=== PATIENT | female | born 1990 | race Caucasian/White ===

== ENCOUNTER 2020-10-25 01:16 | Inpatient (IN) | payer OTHER ==
[2020-10-25] MEDS ORDERED: FENTANYL PF 100 MCG/2ML IVPush PRN (01:30)
[2020-10-25] MEDS ORDERED: SODIUM CITRATE/CITRIC ACID 30 ML UDC PO PRN (01:30)
[2020-10-25] MEDS ORDERED: MISOPROSTOL 200 MCG TABLET ONE (01:30)
[2020-10-25] MEDS ORDERED: FENTANYL PF 100 MCG/2ML IV PRN (01:30)
[2020-10-25] MEDS ORDERED: METOCLOPRAMIDE 5 MG/ML, 2ML IVPush PRN (01:30)
[2020-10-25] MEDS ORDERED: LACTATED RINGERS 1,000 ML IVBOLUS PRN (01:30)
[2020-10-25] MEDS ORDERED: LIDOCAINE 1%, 20ML ONE ×2 (01:30→03:41)
[2020-10-25] MEDS ORDERED: LACTATED RINGERS 1,000 ML IV SCH (01:30)
[2020-10-25] MEDS ORDERED: OXYTOCIN 30U/ 0.9% NaCL 500ML 500 ML IV ONE (01:30)
[2020-10-25] MEDS ORDERED: ONDANSETRON 2MG/ML, 2ML IVPush PRN (01:30)
[2020-10-25] MEDS ORDERED: TERBUTALINE 1 MG/ML, 1ML SQ PRN (01:30)
[2020-10-25] MEDS ORDERED: FENTANYL/BUPIV./NS/PF 250 ML EPIDCONT SCH (01:30)
[2020-10-25] MEDS ORDERED: TERBUTALINE 1 MG/ML, 1ML IVPush PRN (01:30)
[2020-10-25] MEDS ORDERED: D5%-LACTATED RINGERS 1,000 ML IV SCH (01:30)
[2020-10-25] MEDS ORDERED: OXYTOCIN 30U/ 0.9% NaCL 500ML 500 ML ONE (01:31)
[2020-10-25] MEDS ORDERED: NEWBORN KIT ONE (01:41)
[2020-10-25 01:58] LABS: MEAN CORPUSCULAR HGB CONC 33.6 g/dL (32.4-35.8); MEAN PLATELET VOLUME 9.2 fL (7.4-10.4); PLATELET COUNT 224 x10^3/uL (130-400); RED BLOOD COUNT 4.33 x10^6/uL (3.82-5.3); RED CELL DISTRIBUTION WIDTH 14.5 % (9.6-15.2)
[2020-10-25 03:24] LABS: MD YES
[2020-10-25 03:29] LABS: BAND#(MANUAL) 0.71 x10^3/uL; BANDS%(MANUAL) 4 % (0-7); LYMPH#(MANUAL) 4.09 x10^3/uL (1-3.4); LYMPHS% (MANUAL) 23 % (22-44); MONOS#(MANUAL) 1.25 x10^3/uL (0.3-2.7); MONOS% (MANUAL) 7 % (2-9); MYELOCYTES# (MANUAL) 0.18 x10^3/uL (0-0); MYELOCYTES% (MANUAL) 1 % (0-0); SEG#(MANUAL) 11.57 x10^3/uL (1.8-6.8); SEGS% (MANUAL) 65 % (42-75)
[2020-10-25 03:31] LABS: <PLATELET ESTIMATE> ADEQUATE; <PLT MORPHOLOGY> NORMAL PLT MORPH; <RBC MORPHOLOGY> NORMAL
[2020-10-25] MEDS ORDERED: OXYTOCIN 10 UNITS/ML, 1ML ONE (03:34)
[2020-10-25] MEDS ORDERED: CALCIUM CARBONATE 500 MG TAB.CHEW PO PRN (04:30)
[2020-10-25] MEDS ORDERED: OXYcodone/APAP 5/325MG TABLET PO PRN ×2 (04:30)
[2020-10-25] MEDS ORDERED: MAGNESIUM HYDROXIDE 8%, 30ML UDC PO PRN (04:30)
[2020-10-25] MEDS ORDERED: MISOPROSTOL 200 MCG TABLET PR PRN (04:30)
[2020-10-25] MEDS ORDERED: OXYTOCIN 30U/ 0.9% NaCL 500ML 500 ML IV SCH (04:30)
[2020-10-25] MEDS ORDERED: ACETAMINOPHEN 325 MG TABLET PO PRN ×2 (04:30)
[2020-10-25] MEDS ORDERED: SIMETHICONE 80 MG CHEW TAB PO PRN (04:30)
[2020-10-25] MEDS ORDERED: ONDANSETRON 2MG/ML, 2ML IV PRN (04:30)
[2020-10-25] MEDS ORDERED: OXYTOCIN 10 UNITS/ML, 1ML IM PRN (04:30)
[2020-10-25] MEDS ORDERED: RHOGAM FROM BLOOD BANK 1 NOTE EA IM/IV ONE (04:30)
[2020-10-25] MEDS ORDERED: DIPH,PERTUSS(ACELL),TET VAC/PF NC IM-VACC PRN (04:30)
[2020-10-25 06:00] VITALS: BP 124/83
[2020-10-25 08:00] VITALS: BP 105/65
[2020-10-25] MEDS: DOCUSATE 100 MG CAPSULE PO PRN (09:46)
[2020-10-25] MEDS: IBUPROFEN 600 MG TABLET PO PRN ×2 (09:46→16:37)
[2020-10-25] MEDS: PRENATAL VIT/IRON/FA 1 EACH TABLET PO SCH (09:46)
[2020-10-25 12:06] LABS: BASOPHILS % (AUTO) 1 % (0-1); EOSINOPHILS % (AUTO) 0 % (1-7); LYMPHOCYTES % (AUTO) 13 % (22-44); MEAN CORPUSCULAR HEMOGLOBIN 30.2 pg (27.0-34.8); MEAN CORPUSCULAR HGB CONC 33.9 g/dL (32.4-35.8); MEAN PLATELET VOLUME 9.5 fL (7.4-10.4); MONOCYTES % (AUTO) 7 % (2-9); NEUTROPHILS % (AUTO) 80 % (42-75); PLATELET COUNT 228 x10^3/uL (130-400); RED BLOOD COUNT 4.21 x10^6/uL (3.82-5.3); RED CELL DISTRIBUTION WIDTH 13.8 % (9.6-15.2)
[2020-10-25 12:30] LABS: MD SCAN
[2020-10-25 13:58] VITALS: BP 103/71
[2020-10-25 16:31] VITALS: BP 106/68
[2020-10-25 20:00] VITALS: BP 109/71
[2020-10-25 21:13] LABS: BASOPHILS % (AUTO) 1 % (0-1); EOSINOPHILS % (AUTO) 0 % (1-7); LYMPHOCYTES % (AUTO) 19 % (22-44); MEAN CORPUSCULAR HGB CONC 33.4 g/dL (32.4-35.8); MEAN PLATELET VOLUME 9.4 fL (7.4-10.4); MONOCYTES % (AUTO) 8 % (2-9); NEUTROPHILS % (AUTO) 72 % (42-75); PLATELET COUNT 214 x10^3/uL (130-400); RED BLOOD COUNT 3.97 x10^6/uL (3.82-5.3); RED CELL DISTRIBUTION WIDTH 14.4 % (9.6-15.2)
[2020-10-25 21:18] LABS: ALANINE AMINOTRANSFERASE 23 U/L (12-78); ALBUMIN 2.3 g/dL (3.4-5.0); ANION GAP 7 mmol/L (5-15); CALCIUM 8.7 mg/dL (8.5-10.1); CHLORIDE 110 mmol/L (98-107); CREATININE 0.71 mg/dL (0.55-1.02)
[2020-10-25 21:21] LABS: ALKALINE PHOSPHATASE 101 U/L (45-117); BILIRUBIN,TOTAL 0.3 mg/dL (0.2-1.0)
[2020-10-25 21:35] LABS: MD SCAN
[2020-10-26] VITALS: BP 124/75
[2020-10-26] MEDS: IBUPROFEN 600 MG TABLET PO PRN ×2 (00:36→08:00)
[2020-10-26] MEDS ORDERED: IBUP-1222 PO (07:18)
[2020-10-26 07:30] VITALS: BP 115/76
[2020-10-26] MEDS: DOCUSATE 100 MG CAPSULE PO PRN (08:00)
[2020-10-26] MEDS: PRENATAL VIT/IRON/FA 1 EACH TABLET PO SCH (08:00)
== END 2020-10-26 14:25 | disposition home or self-care (01) | DRG 807 ==
LOC: LDOP 01:16 → EDIP 01:33 → LDIP 01:37 → 2NW 05:29
PROVIDERS: ADMIT Obstetrics & Gynecology; ATTEND Obstetrics & Gynecology
PROC: 0KQM0ZZ Repair Perineum Muscle, Open Approach (ICD-10-PCS; principal; 2020-10-25)
PROC: 10E0XZZ Delivery of Products of Conception, External Approach (ICD-10-PCS; 2020-10-25)
DX: O62.9 Abnormality of forces of labor, unspecified (principal); Z37.0 Single live birth; Z3A.39 39 weeks gestation of pregnancy; O70.1 Second degree perineal laceration during delivery; Z20.822 Contact with and (suspected) exposure to COVID-19
CPT/HCPCS: 36415; 80053; 85025; 86592; 86850; 86900; 87635; G0378; J2590